=== PATIENT | male | born 1940 | race Caucasian/White ===

== ENCOUNTER 2018-04-15 08:53 | Day surgery (SDC) | payer MEDICARE, OTHER ==
[~2018-04-15] VITALS: Ht 182.9 cm; Wt 93.3 kg
[~2018-04-15 08:53] MED LIST: ACET500 PO; ALLO300; ASPI325 PO; ASPI325EC PO; Aspirin325 MG; DOCU100 PO; DONE10; Daily Multiple1 EACH; ERGO400 PO; Multivitamin1 EAC1 PO; OXYC5 PO; TOCO1000; VITAMIN D35000 UNIT; XARELTO10 MG PO
--- NOTE | 2018-04-15 10:25 | NUR ---
04/15/18 [email or web address] Heidy Ricci RN EXPLAINED THE PROCEDURE AND DISCHARGE ISNTRUCTIONS TO PT AND PT'S UNTIL ALL QUESTIONS ANSWERED. INCENTIVE SPIROMETER PROVIDED WITH TEACHING. PT DEMONSTRATED INCENTIVE SPIROMETER X2. WARM BLANKETS PROVIDED. CALL LIGHT IN REACH.
--- NOTE | 2018-04-15 15:38 | NUR ---
04/15/18 1538 Jun Martinez LATE ENTRY-1515 UP URINATED 400CC CLEAR YELLOW URINE. DENIES PAIN, N/V AT THIS TIME. VSS. 1525-DISCHARGE INSTRUCTIONS GIVEN TO PATIENT AND AND BOTH VERBALIZED UNDERSTANDING. PATIENT DEMONSTRATED USE OF INCENTIVE SPIROMETER. PATIENTS SAID THEY WOULD LIKE A FEW MORE MINUTES FOR PATIENT TO WAKE UP A LITTLE MORE BEFORE LEAVING. WILL CONTINUE TO MONITOR. VSS
== END 2018-04-15 16:20 | disposition home or self-care (01) ==
LOC: ORSCSDS 08:53
PROVIDERS: Orthopaedic Surgery
PROC: 0LS14ZZ Reposition Right Shoulder Tendon, Percutaneous Endoscopic Approach (ICD-10-PCS; principal; 2018-04-15 10:00)
PROC: 0RNJ4ZZ Release Right Shoulder Joint, Percutaneous Endoscopic Approach (ICD-10-PCS; principal; 2018-04-15 10:00)
PROC: 0LQ14ZZ Repair Right Shoulder Tendon, Percutaneous Endoscopic Approach (ICD-10-PCS; principal; 2018-04-15 10:00)
DX: M75.111 Incomplete rotator cuff tear or rupture of right shoulder, not specified as traumatic (principal); G30.9 Alzheimer's disease, unspecified; F02.80 Dementia in other diseases classified elsewhere, unspecified severity, without behavioral disturbance, psychotic disturbance, mood disturbance, and anxiety; Z79.82 Long term (current) use of aspirin; Z79.899 Other long term (current) drug therapy
CPT/HCPCS: C1713; J0171; J0690; J1100; J2250; J2370; J2405; J3010; J7120

== ENCOUNTER → 2021-10-05 | Outpatient (CLI) | payer MEDICARE, OTHER | END | disposition home or self-care (01) | LOC: LAB SHORT 10:20 → LAB 10:20 | DX: E11.9 Type 2 diabetes mellitus without complications (principal) | CPT/HCPCS: 82043 ==

== ENCOUNTER 2022-03-18 14:28 | Emergency (ER) | payer MEDICARE, OTHER ==
[~2022-03-18] VITALS: Ht 182.9 cm; Wt 83.5 kg
[2022-03-18 15:20] LABS: BASOPHILS ABSOLUTE AUTO 0.06 K/mm3 (0.00-0.23); BASOPHILS PERCENT AUTO 1 % (0-2); EOSINOPHILS ABSOLUTE AUTO 0.14 K/mm3 (0.00-0.68); EOSINOPHILS PERCENT AUTO 2 % (0-6); Hematocrit 45.8 % (37.0-53.0); Hemoglobin 15.7 g/dL (13.5-17.5); IMMATURE GRAN ABSOLUTE AUTO 0.05 K/mm3 (0.00-0.10); IMMATURE GRAN PERCENT AUTO 1 % (0-1); LYMPHOCYTES ABSOLUTE AUTO 2.54 K/mm3 (0.84-5.20); LYMPHOCYTES PERCENT AUTO 28 % (21-46); MONOCYTES ABSOLUTE AUTO 0.66 K/mm3 (0.16-1.47); MONOCYTES PERCENT AUTO 7 % (4-13); Mean Corpuscular HGB 29.5 pg (26.0-34.0); Mean Corpuscular HGB Conc 34.3 g/dL (31.5-36.5); Mean Corpuscular Volume 86 fL (80-100); Mean Platelet Volume 9.9 fL (9.1-12.4); NEUTROPHILS ABSOLUTE AUTO 5.57 K/mm3 (1.96-9.15); NEUTROPHILS PERCENT AUTO 62 % (41-73); Platelet Count 209 K/mm3 (150-400); RDW Coefficient Variation 12.9 % (11.7-14.2); RDW Standard Deviation 40.2 fL (35.1-46.3); Red Blood Cell Count 5.33 M/mm3 (4.30-5.90); White Blood Cell Count 9.02 K/mm3 (4.00-11.30)
[2022-03-18 15:45] LABS: Albumin, Blood 3.8 g/dL (3.4-5.0); Albumin/Globulin Ratio 0.9 (0.8-1.8); Bilirubin, Total 0.6 mg/dL (0.1-1.0); Bun/Creatinine Ratio 13.2 (12.0-20.0); Calcium, Blood 9.5 mg/dL (8.5-10.1); Creatinine, Blood 1.44 mg/dL (0.60-1.20); Globulin, Blood 4.2 g/dL (2.2-4.0); Potassium, Blood 4.4 mmol/L (3.5-5.5)
== END 2022-03-18 17:05 | disposition left against medical advice (07) ==
LOC: ER 14:28
PROVIDERS: Physician Assistant
DX: R06.02 Shortness of breath (principal); Z79.82 Long term (current) use of aspirin; Z53.21 Procedure and treatment not carried out due to patient leaving prior to being seen by health care provider
CPT/HCPCS: 36415; 71046; 80053; 83690; 84484; 85025; 93005; 93010; 99282-25